=== PATIENT | male | born 1980 | race Caucasian/White ===

== ENCOUNTER 2019-02-01 03:00 | Emergency (ER) | payer OTHER ==
[2019-02-01] MEDS ORDERED: Geodon 20 MG INJ IM ONE (03:42)
[2019-02-01 03:45] LABS: BASOPHIL % 0.4 % (0.0-0.4); Basophil (Absolute #) 0.05 (0-0.4); Eosinophil % 2.1 % (0.00-5.0); Eosinophil (Absolute #) 0.28 (0-0.5); Granulocyte Absolute (ANC) 5.19 (1.4-6.9); Granulocytes % 39.7 % (36.0-66.0); Hematocrit 42.9 % (42-50); Hemoglobin 14.5 gm/dl (12.5-18.0); Lymphocyte (Absolute #) 6.41 (1.0-4.6); Lymphocytes % 48.9 % (24.0-44.0); Mean Cell Volume 91.7 fl (78-100); Mean Corpuscular Hgb Concent. 33.8 g/dl (32-36); Mean Platelet Volume 8.8 fl (6-9.5); Monocyte (Absolute #) 1.17 (0.0-1.3); Monocytes % 8.9 % (0.0-12.0); Platelet Count 388 K/mm3 (150-450); Red Blood Count 4.68 M/mm3 (4.1-5.6); Red Cell Distribution Width 14.9 % (11.5-14.0); White Blood Count 13.1 K/mm3 (4.0-10.5)
[2019-02-01 03:57] LABS: ALBUMIN 4.4 g/dL (3.5-5.0); ALKALINE PHOSPHATASE 75 U/L (38-126); ANION GAP 17.1 MEQ/L (5-15); BLOOD UREA NITROGEN 10 mg/dL (9-20); CHLORIDE 110 mmol/L (98-107); Calcium 9.9 mg/dL (8.4-10.2); Carbon Dioxide 23 mmol/L (22-30); Glucose 97 mg/dL (74-106); Potassium 4.1 mmol/L (3.5-5.1); SGOT/AST 28 U/L (17-59); SGPT/ALT 15 U/L (0-50); SODIUM 146 mmol/L (137-145); Total Protein 7.6 g/dL (6.3-8.2)
[2019-02-01] MEDS ORDERED: MORPHINE SULFATE 2 MG INJ ONE (04:52)
[2019-02-01] MEDS: Geodon 20 MG INJ IM ONE (04:59)
[2019-02-01 05:13] LABS: Slide Review 1 YES
[2019-02-01] MEDS: MORPHINE SULFATE 2 MG INJ IM ONE (05:26)
[2019-02-01] MEDS ORDERED: Sodium Chloride 0.9% 1000 ML 1,000 ML ONE (06:14)
[2019-02-01] MEDS: Sodium Chloride 0.9% 1000 ML 1,000 ML IV STA (06:16)
[2019-02-01] MEDS: MORPHINE SULFATE 2 MG INJ IV ONE (06:17)
[2019-02-01 07:56] LABS: Appearance CLEAR (CLEAR); Bilirubin NEGATIVE (NEGATIVE); Blood NEGATIVE Ery/ul (0-5); Glucose NEGATIVE (NEGATIVE); Ketones NEGATIVE (NEGATIVE); Leukocyte Esterase NEGATIVE (NEGATIVE); Mucus SLIGHT /HPF (NEGATIVE); Nitrite NEGATIVE (NEGATIVE); Protein,Urine Dip NEGATIVE (Negative); RBC 0-2 /HPF (0-2); Specific Gravity 1.013 (1.005-1.025); Urobilinogen 4 mg/dL (0-1)
[2019-02-01 08:03] LABS: Amphetamine,Urine NEGATIVE (NEGATIVE); Barbiturate,Urine NEGATIVE (NEGATIVE); Benzodiazepine,Urine NEGATIVE (NEGATIVE); Cocaine,Urine NEGATIVE (NEGATIVE); Methadone,Urine NEGATIVE (NEGATIVE); Opiate,Urine NEGATIVE (NEGATIVE); PCP,Urine NEGATIVE (NEGATIVE); THC,Urine POSITIVE (NEGATIVE)
--- NOTE | 2019-02-01 08:55 | ERPHSYRPT ---
- History of Present Illness Patient Subjective Stated Complaint: Pt states he hurt back last night while moving mattress. Pt also adds he is having suicidal ideations and held a gun to his head 2 evenings ago "with explosives as ammunition" after being investigated for criminal offenses "against children". Pt has been drinking alcohol this evening. Triage Nursing Assessment: pink/warm/dry, resp easy, a&ox4, gait not observed, no deformities or bruising to back noted. pt is hyperverbal with pressured speech. Allergies/Adverse Reactions: chicken derived Allergy (Verified 12/09/15 17:45) clonidine Allergy (Verified 02/01/19 03:07) Itching diphenhydramine HCl [From Benadryl] Allergy (Verified 02/01/19 03:07) Latex, Natural Rubber Allergy (Verified 02/01/19 03:07) Itching Penicillins Allergy (Verified 12/09/15 17:45) acetaminophen [From Vicodin] Adverse Reaction (Verified 02/01/19 03:07) clonazepam [From Klonopin] Adverse Reaction (Verified 12/09/15 17:45) haloperidol [From Haldol] Adverse Reaction (Verified 12/09/15 17:45) haloperidol lactate [From Haldol] Adverse Reaction (Verified 12/09/15 17:45) hydrocodone bitartrate [From Vicodin] Adverse Reaction (Verified 02/01/19 03:07) Home Medications: Acetaminophen [Tylenol Extra Strength] 02/01/19 [History] Insulin NPH Hum/Reg Insulin Hm [Novolin 70-30 Flexpen] See Protocol DIRECTIONS UNKNOWN 02/01/19 [History] Hx Tetanus, Diphtheria Vaccination/Date Given: Yes Hx Influenza Vaccination/Date Given: Yes Hx Pneumococcal Vaccination/Date Given: Yes Immunizations Up to Date: Yes - Past Medical History Pertinent Past Medical History: Yes Endocrine Medical History: Diabetes Type I Psycho-Social History: Bipolar, Other Other Medical History: intermittent explosive disorder, PTSD - Past Surgical History Past Surgical History: Yes Gastrointestinal: Appendectomy Other Surgical History: ex lap post appendectomy, rubber tube in vein - Social History Smoking Status: Current every day smoker Exposure to second hand smoke: Yes Drug Use: none Patient Lives Alone: Yes - Nursing Vital Signs Nursing Vital Signs: Initial Vital Signs Pulse Rate 88 02/01/19 03:00 Respiratory Rate 18 02/01/19 03:00 Blood Pressure 158/71 02/01/19 03:00 O2 Sat by Pulse Oximetry 97 02/01/19 03:00 Pain Scale Pain Intensity [Right Lower 9 Back] Pain Intensity 0 - Physical Exam SpO2: 99 Ordered Tests: Active Orders 24 hr Category Date Time Status Blood Alcohol [ETHYL ALCOHOL] Stat Lab 02/01/19 08:40 Completed CBC W DIFF Stat Lab 02/01/19 03:43 Completed CMP Stat Lab 02/01/19 03:43 Completed ETHYL ALCOHOL Stat Lab 02/01/19 03:44 Completed UA W/RFX UR CULTURE Stat Lab 02/01/19 07:13 Completed Urine Triage Profile Stat Lab 02/01/19 07:13 Completed Medication Summary Discontinued Medications Generic Name Dose Route Start Last Admin Trade Name Kiki PRN Reason Stop Dose Admin Sodium Chloride 1,000 mls @ 999 mls/hr 02/01/19 04:55 02/01/19 07:34 Sodium Chloride 0.9% 1000 Ml IV 02/01/19 05:55 Infused .Q1H1M STA Infusion Sodium Chloride Confirm 02/01/19 06:14 Sodium Chloride 0.9% 1000 Ml Administered 02/01/19 06:15 Dose 1,000 mls @ ud .ROUTE .STK-MED ONE Morphine Sulfate 1 mg 02/01/19 04:50 02/01/19 05:26 Morphine Sulfate 2 Mg Inj IM 02/01/19 04:51 Not Given STAT ONE Morphine Sulfate 1 mg 02/01/19 04:51 02/01/19 06:17 Morphine Sulfate 2 Mg Inj IV 02/01/19 04:52 1 mg STAT ONE Administration Morphine Sulfate Confirm 02/01/19 04:52 Morphine Sulfate 2 Mg Inj Administered 02/01/19 04:53 Dose 2 mg .ROUTE .STK-MED ONE Ziprasidone 20 mg 02/01/19 03:39 02/01/19 04:59 Geodon 20 Mg Inj IM 02/01/19 03:40 20 mg STAT ONE Administration Ziprasidone Confirm 02/01/19 03:42 Geodon 20 Mg Inj Administered 02/01/19 03:43 Dose 20 mg IM .STK-MED ONE Lab/Rad Data: Laboratory Result Diagrams 02/01/19 03:43 02/01/19 03:43 Laboratory Results 02/01/19 02/01/19 02/01/19 Range/Units 08:40 07:13 07:13 WBC (4.0-10.5) K/mm3 RBC (4.1-5.6) M/mm3 Hgb (12.5-18.0) gm/dl Hct (42-50) % MCV (78-100) fl MCH (26-32) pg MCHC (32-36) g/dl RDW (11.5-14.0) % Plt Count (150-450) K/mm3 MPV (6-9.5) fl Gran % (36.0-66.0) % Eos # (Auto) (0-0.5) Absolute Lymphs (auto) (1.0-4.6) Absolute Monos (auto) (0.0-1.3) Lymphocytes % (24.0-44.0) % Monocytes % (0.0-12.0) % Eosinophils % (0.00-5.0) % Basophils % (0.0-0.4) % Absolute Granulocytes (1.4-6.9) Basophils # (0-0.4) Sodium (137-145) mmol/L Potassium (3.5-5.1) mmol/L Chloride (98-107) mmol/L Carbon Dioxide (22-30) mmol/L Anion Gap (5-15) MEQ/L BUN (9-20) mg/dL Creatinine (0.66-1.25) mg/dL Estimated GFR ML/MIN Glucose (74-106) mg/dL Calcium (8.4-10.2) mg/dL Total Bilirubin (0.2-1.3) mg/dL AST (17-59) U/L ALT (0-50) U/L Alkaline Phosphatase (38-126) U/L Serum Total Protein (6.3-8.2) g/dL Albumin (3.5-5.0) g/dL Urine Color YELLOW (YELLOW) Urine Appearance CLEAR (CLEAR) Urine pH 7.0 (5-6) Ur Specific [place] 1.013 (1.005-1.025) Urine Protein NEGATIVE (Negative) Urine Ketones NEGATIVE (NEGATIVE) Urine Blood NEGATIVE (0-5) John/ul Urine Nitrite NEGATIVE (NEGATIVE) Urine Bilirubin NEGATIVE (NEGATIVE) Urine Urobilinogen 4 (0-1) mg/dL Ur Leukocyte Esterase NEGATIVE (NEGATIVE) Urine WBC (Auto) NONE (0-5) /HPF Urine RBC (Auto) 0-2 (0-2) /HPF Urine Mucus (Auto) SLIGHT (NEGATIVE) /HPF Urine Culture Reflexed NO (NO) Urine Glucose NEGATIVE (NEGATIVE) mg/dL Urine Opiates Level NEGATIVE (NEGATIVE) Ur Methadone NEGATIVE (NEGATIVE) Urine Barbiturates NEGATIVE (NEGATIVE) Ur Phencyclidine (PCP) NEGATIVE (NEGATIVE) Urine Amphetamine NEGATIVE (NEGATIVE) U Benzodiazepine Level NEGATIVE (NEGATIVE) Urine Cocaine NEGATIVE (NEGATIVE) Urine Marijuana (THC) POSITIVE (NEGATIVE) Ethyl Alcohol 42 H (0-10) mg/dL Slides for Path Review 02/01/19 02/01/19 02/01/19 Range/Units 03:44 03:43 03:43 WBC 13.1 H (4.0-10.5) K/mm3 RBC 4.68 (4.1-5.6) M/mm3 Hgb 14.5 (12.5-18.0) gm/dl Hct 42.9 (42-50) % MCV 91.7 (78-100) fl MCH 31.0 (26-32) pg MCHC 33.8 (32-36) g/dl RDW 14.9 H (11.5-14.0) % Plt Count 388 (150-450) K/mm3 MPV 8.8 (6-9.5) fl Gran % 39.7 (36.0-66.0) % Eos # (Auto) 0.28 (0-0.5) Absolute Lymphs (auto) 6.41 H (1.0-4.6) Absolute Monos (auto) 1.17 (0.0-1.3) Lymphocytes % 48.9 H (24.0-44.0) % Monocytes % 8.9 (0.0-12.0) % Eosinophils % 2.1 (0.00-5.0) % Basophils % 0.4 (0.0-0.4) % Absolute Granulocytes 5.19 (1.4-6.9) Basophils # 0.05 (0-0.4) Sodium 146 H (137-145) mmol/L Potassium 4.1 (3.5-5.1) mmol/L Chloride 110 H (98-107) mmol/L Carbon Dioxide 23 (22-30) mmol/L Anion Gap 17.1 H (5-15) MEQ/L BUN 10 (9-20) mg/dL Creatinine 0.90 (0.66-1.25) mg/dL Estimated GFR > 60.0 ML/MIN Glucose 97 (74-106) mg/dL Calcium 9.9 (8.4-10.2) mg/dL Total Bilirubin 0.40 (0.2-1.3) mg/dL AST 28 (17-59) U/L ALT 15 (0-50) U/L Alkaline Phosphatase 75 (38-126) U/L Serum Total Protein 7.6 (6.3-8.2) g/dL Albumin 4.4 (3.5-5.0) g/dL Urine Color (YELLOW) Urine Appearance (CLEAR) Urine pH (5-6) Ur Specific [place] (1.005-1.025) Urine Protein (Negative) Urine Ketones (NEGATIVE) Urine Blood (0-5) John/ul Urine Nitrite (NEGATIVE) Urine Bilirubin (NEGATIVE) Urine Urobilinogen (0-1) mg/dL Ur Leukocyte Esterase (NEGATIVE) Urine WBC (Auto) (0-5) /HPF Urine RBC (Auto) (0-2) /HPF Urine Mucus (Auto) (NEGATIVE) /HPF Urine Culture Reflexed (NO) Urine Glucose (NEGATIVE) mg/dL Urine Opiates Level (NEGATIVE) Ur Methadone (NEGATIVE) Urine Barbiturates (NEGATIVE) Ur Phencyclidine (PCP) (NEGATIVE) Urine Amphetamine (NEGATIVE) U Benzodiazepine Level (NEGATIVE) Urine Cocaine (NEGATIVE) Urine Marijuana (THC) (NEGATIVE) Ethyl Alcohol 168 H (0-10) mg/dL Slides for Path Review YES - Progress Progress: improved, re-examined Progress Note: 02/01/19 08:45 I received this pt in transfer at [address] farrell. she gave me a brief h /o initial back pain, suicidal ideation and threatening behavior. additionally, pt began threatening dr. farrell with physical harm and cursing. she gave pt geodon and morphine. I had not realized there was no hx or physical exam on chart. i contacted dr. farrell after she left her shift and she told me she did not perform h and p because he was screaming at her and threatening her. I reexamined him. he currently does not want [facility] eval. he wants to be transferred to [place]. YASH Frost contacted [facility] and they want his blood alcohol under 100 prior to transfer to them. 02/01/19 09:[address] Armendariz at [facility]. she accepts pt in transfer. Counseled pt/family regarding: lab results, diagnosis, need for follow-up, rad results - Departure Departure Disposition: Home, Transfer Clinical Impression: Suicidal behavior, Homicidal ideation Condition: Stable Critical Care Time: No Referrals: VENICE PATTERSON [facility] [Primary Care Provider] -
[2019-02-01 11:40] VITALS: BP 104/58; PULSE 60; O2SAT 98
== END 2019-02-01 11:20 | disposition short-term general hospital (02) ==
LOC: ED 03:00
DX: R45.851 Suicidal ideations (principal); R45.850 Homicidal ideations
CPT/HCPCS: 36415; 80053; 80307; 81001; 85025; 96360; 96372; 96374; 99285; G0480; P9612; J2270; J3486